=== PATIENT | male | born 2000 | race Caucasian/White ===

== ENCOUNTER 2021-11-24 16:50 | Emergency (ER) | payer OTHER ==
[2021-11-24 17:36] VITALS: BP 127/81; PULSE 84; RESP 18; TEMP 98.2; BMI 26.6
[2021-11-24] MEDS ORDERED: diazePAM 5 MG TABLET PO ONE (18:24)
[2021-11-24] MEDS ORDERED: diazePAM 5 MG TABLET ONE (18:38)
[2021-11-24 19:24] LABS: BASO % 0.5 % (0-2.0); EOS % 1.7 % (0-4.5); HEMATOCRIT 45.8 % (35.4-49); HEMOGLOBIN 16.3 GM/dL (11.7-16.9); LYMPH % 25.6 % (8-40); MCH 31.7 pg (25.7-33.7); MCHC 35.6 g/dl (32.0-35.9); MEAN CELL VOLUME 88.9 fl (80-96); MEAN PLT VOLUME 8.2 fl (7.5-11.1); MONO % 5.8 % (3.8-10.2); NEUT % 66.4 % (42.8-82.8); PLATELET COUNT 291 10^3/uL (134-434); RBC 5.15 M/mm3 (4.00-5.60); RDW 13.3 % (11.9-15.9); WHITE BLOOD COUNT 10.2 K/mm3 (4.0-10.0)
[2021-11-24 19:38] LABS: CHLORIDE 104 mmol/L (98-107); SODIUM 142 mmol/L (136-145)
[2021-11-24 19:40] LABS: ANION GAP 9 MMOL/L (8-16); BLOOD UREA NITROGEN 20.3 mg/dL (7-18); CALCIUM 9.4 mg/dL (8.5-10.1); CO2 28 mmol/L (21-32); GLUCOSE,RANDOM 100 mg/dL (74-106)
[2021-11-24 19:41] LABS: ALBUMIN 4.5 g/dl (3.4-5.0)
[2021-11-24 19:43] LABS: SGPT/ALT 17 U/L (13-61)
[2021-11-24 19:44] LABS: SGOT/AST 6 U/L (15-37)
[2021-11-24 19:45] LABS: BILIRUBIN,TOTAL 0.7 mg/dL (0.2-1); TOT PROT 7.9 g/dl (6.4-8.2)
[2021-11-24 19:46] LABS: ALK PHOS 72 U/L (45-117)
[2021-11-24 20:03] LABS: EPI CELLS 17 /uL (0-25.1); HYALINE CASTS 1 /uL (0-3.1); URINE APPEARANCE CLOUDY; URINE BACTERIA 177 /uL (0-1359); URINE BILIRUBIN NEGATIVE (NEGATIVE); URINE COLOR YELLOW; URINE GLUCOSE (UA) NEGATIVE (NEGATIVE); URINE KETONE NEGATIVE (NEGATIVE); URINE LEUK ESTERASE NEGATIVE (NEGATIVE); URINE NITRITE NEGATIVE (NEGATIVE); URINE PROTEIN 1+ (NEGATIVE); URINE RBC 22 /uL (0-23.9); URINE WBC 12 /uL (0-25.8)
[2021-11-24 20:22] LABS: ACTIVATED PTT 35.9 SECONDS (25.2-36.5); INR 1.12 (0.83-1.09); PROTHROMBIN TIME (PATIENT) 12.9 SEC (9.7-13.0)
[2021-11-24 21:12] LABS: COCAINE, UR NEGATIVE (NEGATIVE); METHADONE, UR NEGATIVE (NEGATIVE); OPIATES, URI NEGATIVE (NEGATIVE); PHENCYCLIDINE,URINE NEGATIVE (NEGATIVE); URINE AMPHETAMINES NEGATIVE (NEGATIVE); URINE BARBITURATES NEGATIVE (NEGATIVE); URINE BENZODIAZEPINES NEGATIVE (NEGATIVE)
== END 2021-11-24 21:48 | disposition home or self-care (01) ==
LOC: JER 16:50
DX: F41.9 Anxiety disorder, unspecified (principal)
CPT/HCPCS: 36415; 80053; 80307; 81003; 84443; 85025; 85610; 85730; 93005; 93010; 99284-25; C9803-CS; U0003; U0005